=== PATIENT | female | born 1980 | race Caucasian/White ===

== ENCOUNTER → 2023-07-07 | Outpatient (CLI) | payer BC, SELFPAY ==
[2023-07-07 12:01] LABS: Absolute Lymphocyte Count 1.31 X10^3/uL (0.83-4.51); Absolute Neutrophil Count 4.2 X10^3/uL (2.0-7.7); Basophil# 0.02 X10^3/uL; Basophil% 0.3 % (0-1); Eosinophil# 0.05 X10^3/uL; Eosinophils% 0.8 % (0-5); Hematocrit 41.7 % (37-47); Hemoglobin 13.7 g/dL (12.0-15.0); Lymphocyte # 1.31 X10^3/ul (0.83-4.51); Lymphocyte % 21.5 % (19-41); Mean Corp Hgb Conc 32.9 g/dL (32-36); Mean Corpuscular Hgb 30.4 pg (27.0-32.0); Mean Corpuscular Volume 92.7 fL (81-99); Mean Platelet Vol. 9.4 fl (6.2-12.0); Monocyte# 0.49 X10^3/uL; NRBC Flagged by Analyzer 0 % (0-5); Neutrophil # 4.21 X10^3/uL (2.7-7.7); Neutrophil % 69.1 % (47-70); Platelet Count 304 K/mm3 (150-450); RBC Distribution Width CV 12.8 % (11.6-14.6); RBC Distribution Width SD 43.6 fl (35.1-43.9); White Blood Count 6.1 K/mm3 (4.4-11.0)
[2023-07-07 12:47] LABS: ALB/GLOB Ratio 1.1 RATIO (0.9-2.4); AST(SGOT) 14 U/L (15-37); Alanine Aminotransfer ALT/SGPT 18 U/L (13-56); Albumin, Serum 3.8 g/dL (3.2-5.0); Alkaline Phosphatase 65 U/L (45-117); Anion Gap 3 (5-15); BUN 10 mg/dL (7-18); BUN/Creat Ratio 12.9 RATIO (10-20); Calcium,Total 9.4 mg/dL (8.5-10.1); Chloride 108 mmol/L (98-107); Creatinine, Serum 0.78 mg/dL (0.55-1.02); EST Glomerular Filtration Rate 87 mL/min (>60); Est Glom Filt Rate - Afr Amer 105 mL/min (>60); Globulin 3.5 g/dL (2.2-4.2); Glucose 79 mg/dL (74-106); Potassium 4.2 mmol/L (3.5-5.1); Protein, Total 7.3 g/dL (6.4-8.2); Sodium Level 138 mmol/L (136-145); Thyroid Stim Hormone (TSH) 2.03 uIU/mL (0.358-3.74)
== END | disposition home or self-care (01) ==
LOC: MFPLAB 10:42
PROVIDERS: PCP Family Medicine; Visit Provider Family Medicine
DX: F41.9 Anxiety disorder, unspecified (principal); E03.9 Hypothyroidism, unspecified
CPT/HCPCS: 36415; 80053; 84443; 85025

== ENCOUNTER → 2023-11-18 | Outpatient (CLI) | payer OTHER, SELFPAY ==
[2023-11-23 19:07] LABS: HPV APTIMA, High Risk Positive (Negative)
[2023-11-23 20:03] LABS: HPV Reflexed? YES, CHARGE PATIENT
== END | disposition home or self-care (01) ==
PROVIDERS: PCP Family Medicine; Referring Provider Nurse Practitioner Family; Visit Provider Nurse Practitioner Family
DX: Z12.4 Encounter for screening for malignant neoplasm of cervix (principal)
CPT/HCPCS: 87624; 88175; G0145

== ENCOUNTER → 2025-05-01 | Outpatient (CLI) | payer OTHER, SELFPAY ==
[2025-05-05 13:07] LABS: HPV APTIMA, High Risk Negative (Negative)
== END | disposition home or self-care (01) ==
LOC: LABSPEC 16:16
PROVIDERS: PCP Family Medicine; Referring Provider Obstetrics & Gynecology; Visit Provider Obstetrics & Gynecology
DX: R87.612 Low grade squamous intraepithelial lesion on cytologic smear of cervix (LGSIL) (principal); Z12.4 Encounter for screening for malignant neoplasm of cervix
CPT/HCPCS: 87624; 88175; G0145